=== PATIENT | male | born 1970 | race Caucasian/White ===

== ENCOUNTER 2019-05-02 22:30 | Emergency (ER) | payer BC ==
[~2019-05-02] VITALS: Ht 185.4 cm; Wt 131.5 kg
[2019-05-02 22:32] VITALS: BP_SYST 144
--- NOTE | 2019-05-02 22:32 | NUR ---
Patient to ER bed 01 to gown for evaluation. Side rails up.
--- NOTE | 2019-05-02 22:35 | NUR ---
Report given to Dr Rutherford
--- NOTE | 2019-05-02 22:37 | NUR ---
BLOOD SURGAR 89
--- NOTE | 2019-05-02 22:50 | NUR ---
Patient came to the ER after noticed an altered LOC. Patient describes the patient began slurring his speech. No drift noted on all 4 extremities and no facial drooping noted. Patient is able to follow simple commands and speech is clear. Patient is not presenting any signs of acute distress.
--- NOTE | 2019-05-02 23:10 | NUR ---
ER Dr. Mott at bedside examining patient.
[2019-05-02 23:30] LABS: BASOPHILS % (AUTO) 0.3 % (0.0-2.0); EOSINOPHILS # (AUTO) 0.5 K/uL (0.0-0.4); EOSINOPHILS % (AUTO) 5.1 % (0.0-4.0); HEMATOCRIT 48.8 % (36-54); HEMOGLOBIN 16.7 g/dL (14.0-18.0); LYMPHOCYTES # (AUTO) 2.6 K/uL (1.0-5.5); LYMPHOCYTES % (AUTO) 25.8 % (20.5-51.5); MEAN CORPUSCULAR HEMOGLOBIN 32 pg (27-31); MEAN CORPUSCULAR HGB CONC 34 % (32-36); MEAN CORPUSCULAR VOLUME 94 fL (79.0-98.0); MONOCYTES # (AUTO) 0.6 K/uL (0.0-1.0); MONOCYTES % (AUTO) 5.7 % (1.7-9.3); NEUTROPHILS # (AUTO) 6.4 K/uL (1.8-7.7); NEUTROPHILS % (AUTO) 63.1 % (40.0-70.0); PLATELET COUNT (AUTO) 245 K/uL (130-430); RED BLOOD CELL COUNT(AUTO) 5.21 MIL/uL (4.2-6.2); RED CELL DISTRIBUTION WIDTH 13.6 % (9.0-15.0); WHITE BLOOD COUNT (AUTO) 10.1 K/uL (4.8-10.8)
[2019-05-02] MEDS ORDERED: FAMOTIDINE PF 20 MG/2 ML VIAL IVP ONE (23:30)
[2019-05-02] MEDS ORDERED: MAG HYDROX/AL HYDROX/SIMETH 30 ML, DICYCLOMINE HCL 20 MG, LIDOCAINE VISCOUS 2% 15ML (PO... PO ONE ×3 (23:30)
[2019-05-02 23:35] LABS: CALCIUM 8.5 mg/dL (8.4-11.0); CREATININE 0.84 mg/dL (0.55-1.30); POTASSIUM 3.8 mmol/L (3.5-5.1)
[2019-05-02 23:39] LABS: INR 1.1 (0.80-1.20); PROTHROMBIN TIME 11.1 SECS (9.5-12.5)
--- NOTE | 2019-05-02 23:40 | NUR ---
Patient transported to radiology via , accompanied by Leslie.
[2019-05-02 23:46] LABS: ALBUMIN 3.8 g/dL (3.4-4.8); TOTAL BILIRUBIN 0.5 mg/dL (0.0-1.0)
--- NOTE | 2019-05-03 02:00 | NUR ---
Patient resting quietly. No acute distress noted. Vital signs within normal range. at bedside.
[2019-05-03] MEDS ORDERED: ASPIRIN 325 MG TABLET PO ONE (03:15)
[2019-05-03 03:41] VITALS: BP_SYST 144
== END 2019-05-03 03:25 | disposition home or self-care (01) ==
LOC: SED 22:30
DX: G45.9 Transient cerebral ischemic attack, unspecified (principal); Z72.820 Sleep deprivation
CPT/HCPCS: 36415; 70450-TC; 71045; 80053; 82550-TC; 83880; 84484; 85025; 85379; 85610-TC; 85730-TC; 93005; 99284